=== PATIENT | female | born 1995 | race Caucasian/White ===

== ENCOUNTER 2016-10-18 01:24 | Emergency (ER) | payer OTHER ==
--- NOTE | 2016-10-18 04:38 | ED CLINICAL REPORT ---
Clinical Report - Physicians/Mid Levels [facility] [address] [place] [address] 10/18/2016 1:27 [id number] Time Seen: 03:11. Arrived- By private vehicle. Historian- patient. HISTORY OF PRESENT ILLNESS Chief Complaint: Injury to the right and left hand. The injury happened just prior to arrival. Occurred at home. The patient sustained a laceration (Patient states she was breaking a car window with a hammer, and was cut by glass.). Patient is experiencing mild pain. No other injury. REVIEW OF SYSTEMS The patient sustained a laceration. No swelling, tingling, numbness, weakness or foreign body. All systems otherwise negative, except as recorded above. PAST HISTORY Problems: no known problems. Additional Surgeries: no known surgeries. Medications: LORazepam Oral (Tablet 0.5 mg) 1 tablet, PRN. Allergies: No Known Drug Allergy. SOCIAL HISTORY Smoker- current status unknown. Alcohol use. History of drug use: marijuana. ADDITIONAL NOTES The nursing notes have been reviewed. PHYSICAL EXAM Vital Signs: 10/18/2016 01:43 BP: 114/75. HR: 86. RR: 18. O2 saturation: 100%. Temp: 98.4 F. Pain level now: 0/10. Have been reviewed. Appearance: Alert. No acute distress. Head: Head atraumatic. Eyes: Eyes normal inspection. ENT: Nose normal. Neck: Normal inspection. CVS: Pulses normal. Respiratory: No respiratory distress. Back: ROM normal. Skin: Skin warm and dry. Extremities: Dorsal right hand: (Multiple tiny, very superficiallacerations are noted over the surface of the patient's dorsal hand. Wounds are 1-2 mm in length and do not involve the subcutaneous tissue.). Dorsal left hand: subcutaneous 2.0 cm laceration of the central aspect of the dorsal hand. SEE LACERATION PROCEDURE NOTE #1. Neurovascular intact distally. No erythema, tenderness, swelling, abrasion or ecchymosis. No puncture wound, foreign body or deformity. No limitation of extension. Left index finger: mild tenderness and 0.5 cm laceration of the dorsal aspect and PIP joint- SEE LACERATION PROCEDURE NOTE #2. Neurovascular intact distally. No erythema, swelling, abrasion, ecchymosis or puncture wound. No foreign body or deformity. No limitation in movement. No subungual hematoma or amputation present. No wrist injury. Hand and wrist exam otherwise negative. Extremities otherwise negative. Neuro, Vascular and Tendons: Vascular status intact. Sensation intact. Motor intact. Tendon function intact. Neuro: No motor deficit. No sensory deficit. (Grossly oriented.). LABS, X-RAYS, AND EKG Pulse Oximetry: 10/18/2016 01:43 O2 saturation: 100%. (FIO2 - room air). Interpretation: normal. PROGRESS AND PROCEDURES Laceration Repair: Location: left hand. Length: 2 cm. Complexity: simple (local anesthesia used and sutured). Wound depth/shape- subcutaneous and linear. Wound is clean. Distal neuro/vascular/tendon status normal. Tendon examined. No tendon deficit. Local anesthesia provided using 2% lidocaine. Prepped with Betadine. Wound explored, cleansed, irrigated and examined to the base in bloodless field with normal saline. Closure of skin: interrupted 5-0 nylon (4 sutures). Post-procedure: she is stable and there are no complications. Bleeding is controlled. Tetanus immunization given. Laceration Repair #2: Location: left index finger. Length: 0.5cm. Complexity: simple (local anesthesia used and sutured). Wound depth/shape- subcutaneous and linear. Distal neuro/vascular/tendon status normal. Local anesthesia provided using 2% lidocaine. Prepped with Betadine. Wound explored, cleansed, irrigated and examined to the base in bloodless field with normal saline. Closure of skin: interrupted 5-0 nylon (1 suture). Post-procedure: she is stable and there are no complications. Bleeding is controlled and neuro-vascular status is intact distal to the wound. Patient counseled in person regarding the patient's stable condition, diagnosis and need for follow-up. Concerns were addressed. Old medical records reviewed. Disposition: Discharged. Condition: stable and improved. CLINICAL IMPRESSION Multiple superficial lacerations to the left hand.No foreign body present. INSTRUCTIONS Apply ice for 20 minutes three times a day as needed and until better. Don't apply ice directly to skin and don't use while asleep. Do not work today, tomorrow. Warnings: GENERAL WARNINGS: Return or contact your physician immediately if your condition worsens or changes unexpectedly, if not improving as expected, or if other problems arise. Your Current Medications: CONTINUE TAKING THE FOLLOWING MEDICATIONS: LORazepam Oral : Tablet 0.5 mg, 1 tablet PRN. Follow-up: Follow up with your doctor in seven days for suture removal. Understanding of the discharge instructions verbalized by patient. (Electronically signed by Milagros Garcia MD 10/18/2016 5:45)
--- NOTE | 2016-10-18 04:38 | ED NURSING NOTES ---
Clinical Report - Nurses [facility] [place] [address] 10/18/2016 1:27 [id number] TRI[facility] Triage time 01:34 Oct 18 2016. Acuity: LEVEL 4. Chief Complaint: INJURY TO RIGHT and LEFT HAND. 01:39 10/18/16. SEPSIS SCREEN: Sepsis Screen. Negative (no infection suspected/documented). TRENT COMA SCORE: [place] Coma Scale: 15- eyes open spontaneously (4); best verbal response- oriented x 4 (5); best motor response- obeys commands (6). --01:39 Yesi Mcwilliams R.N. 01:45 10/18/16. --01:45 Yesi Mcwilliams R.N. 01:43 10/18/16. BP: 114/75 (regular adult cuff) taken on the left arm, while sitting. HR: 86. RR: 18. O2 saturation: 100% on room air. Temp: 98.4 F (oral). Pain level now: 0/10. --01:45 Yesi Mcwilliams R.N. Weight: 83 kg stated. Height/Length: 68 inches Per Patient. BMI: 27.8. --01:34 Yesi Mcwilliams R.N. Medications LORazepam Oral (Tablet 0.5 mg) 1 tablet, PRN. --01:37 Yesi Mcwilliams R.N. Allergies No Known Drug Allergy. --01:37 Yesi Mcwilliams R.N. History Arrived by private vehicle. Historian: patient. Accompanied by friend and (and partner). This occurred just prior to arrival. She sustained a laceration from a broken glass. ( Patient was smashing in drivers side window with hammer, her hands were lacerated in the process. She was trying to destroy the car that is old and not being used anymore). PAST MEDICAL HX: Negative. Tetanus status: more than 5 years ago. Last normal menstrual period was 2 weeks ago- weeks ago. SOCIAL HX: Current every day heavy tobacco smoker- 1 pack per day. Occasional alcohol use; consumes beer. History of heavy drug use: marijuana. Recently used drugs yesterday. No infectious disease exposure. ABUSE ASSESSMENT: No report of abuse. SELF HARM ASSESSMENT: A self harm assessment was performed. The patient answered "no" to the question "Do you have thoughts of harming or killing yourself?" and "Have you recently had thoughts about harming or killing others?". Bedside precautions. --01:39 Yesi Mcwilliams R.N. PROBLEMS: no known problems. ADDITIONAL SURGERIES: no known surgeries. Interventions ID band on patient. To treatment room. --01:39 Yesi Mcwilliams R.N. PHYSICAL ASSESSMENT 01:43 10/18/16. Ambulatory to room. Patient gowned. GENERAL / NEURO / PSYCH: Oriented X 4. Alert. Appears in no acute distress. EXTREMITIES: Capillary refill is less than 2 seconds in the extremities. Extremity pulses are within normal limits. Extremities exhibit normal ROM. Neuro-vascular status intact to the extremity. Dorsal right hand: small abrasion, laceration with controlled bleeding and multiple puncture wounds. Dorsal left hand: 2.0 cm laceration with controlled bleeding and multiple puncture wounds. SKIN: Skin is warm and dry. Laceration. --01:43 Yesi Mcwilliams R.N. NURSING PROGRESS NOTES 01:45 10/18/16. The plan of care for this patient has been created. Extremity elevated. Patient gowned. Reassurance given. Two patient identifiers checked. Call light placed in reach. Bed placed in lowest position. Brakes of bed on. Patient ready for evaluation- chart flagged and ED physician notified. --01:45 Yesi Mcwilliams R.N. 01:48 10/18/16. ( Wounds cleaned with hibiclense and sterile water). --01:48 Yesi Mcwilliams R.N. 02:00 10/18/2016 TDAP IM 0.5 mL given. (Lot#: [id number], expiration date: 09/22/2018, Quality Assurance Clerk: sanofi pasteur). Given in the right deltoid. Allergies verified and confirmed 5 rights. Vaccine information statement provided to the patient. --02:00 Yesi Mcwilliams R.N. late entry - 02:15 10/18/16. ( Patient informed of long wait due to traumas, she and friends state their understanding). --03:41 Yesi Mcwilliams R.N. 02:58 10/18/16. GENERAL / NEURO / PSYCH: Alert. Oriented X 4. RESPIRATORY: No respiratory distress. CVS: Capillary refill less than 2 seconds. EXTREMITIES: Neuro-vascular status intact to the extremity. SKIN: Skin is warm and dry. ( Patient doing well, partner and friend at bedside). --02:59 Yesi Mcwilliams R.N. late entry - 04:10 10/18/16. ( physician in with patient to suture wound). --05:13 Yesi Mcwilliams R.N. DISPOSITION / DISCHARGE 04:47 10/18/16. Departure time: 04:47 Oct 18 2016. Condition at departure: improved. No learning barriers present. Discharge instructions provided and reviewed with the patient. Work note given. Patient verbalized understanding. Written instructions provided in Ukrainian. The patient was discharged by the physician. She was discharged home and accompanied by furnace combination analyst. She left the Emergency Department ambulatory and via private vehicle. Farm Contractor Buyer driving. --04:47 Yesi Mcwilliams R.N. 04:46 10/18/16. BP: 100/63 (regular adult cuff) taken on the left arm, while sitting. HR: 70. RR: 18. O2 saturation: 100% on room air. Temp: 98.2 F (oral). Pain level now: 0/10. --04:47 Yesi Mcwilliams R.N. Locked/Released at 10/18/2016 5:13 by Yesi Mcwilliams R.N.
--- NOTE | 2016-10-18 04:38 | ED ORDER SUMMARY ---
..... Patient: KENNA PAULSON OrderSheet [facility] VisitID: [id number] [address] [place] [address] 21y, F Registration Date/Time: 10/18/2016 ORDER SHEET Weight: 83.0 kg (stated) Allergies: No Known Drug Allergy GENERAL ORDERS: MEDICATION ORDERS: Tdap IM 0.5 mL (NOW, per protocol) (01:48 10/18/2016 HSoule per protocol) (Ack 1:49 JSamaras R.N.) (2:00 JSamaras R.N.) IV FLUIDS: ORDER SHEET NOTES: [Electronically signed by Yesi Mcwilliams R.N. (05:13 10/18/2016)] [Electronically signed by Milagros Garcia MD (05:45 10/18/2016)] [Electronically locked/signed by Yesi Mcwilliams R.N. (05:13 10/18/2016)]
--- NOTE | 2016-10-18 04:38 | ED ORDER SUMMARY ---
..... Patient: KENNA PAULSON OrderSheet [facility] VisitID: [id number] [address] [place] [address] 21y, F Registration Date/Time: 10/18/2016 ORDER SHEET Weight: 83.0 kg (stated) Allergies: No Known Drug Allergy GENERAL ORDERS: MEDICATION ORDERS: Tdap IM 0.5 mL (NOW, per protocol) (01:48 10/18/2016 HSoule per protocol) (Ack 1:49 JSamaras R.N.) (2:00 JSamaras R.N.) IV FLUIDS: ORDER SHEET NOTES: [Electronically signed by Yesi Mcwilliams R.N. (05:13 10/18/2016)] [Electronically signed by Milagros Garcia MD (05:45 10/18/2016)] [Electronically locked/signed by Yesi Mcwilliams R.N. (05:13 10/18/2016)]
--- NOTE | 2016-10-18 04:38 | ED NURSING NOTES ---
Clinical Report - Nurses [facility] [place] [address] 10/18/2016 1:27 [id number] TRI[facility] Triage time 01:34 Oct 18 2016. Acuity: LEVEL 4. Chief Complaint: INJURY TO RIGHT and LEFT HAND. 01:39 10/18/16. SEPSIS SCREEN: Sepsis Screen. Negative (no infection suspected/documented). TRENT COMA SCORE: [place] Coma Scale: 15- eyes open spontaneously (4); best verbal response- oriented x 4 (5); best motor response- obeys commands (6). --01:39 Yesi Mcwilliams R.N. 01:45 10/18/16. --01:45 Yesi Mcwilliams R.N. 01:43 10/18/16. BP: 114/75 (regular adult cuff) taken on the left arm, while sitting. HR: 86. RR: 18. O2 saturation: 100% on room air. Temp: 98.4 F (oral). Pain level now: 0/10. --01:45 Yesi Mcwilliams R.N. Weight: 83 kg stated. Height/Length: 68 inches Per Patient. BMI: 27.8. --01:34 Yesi Mcwilliams R.N. Medications LORazepam Oral (Tablet 0.5 mg) 1 tablet, PRN. --01:37 Yesi Mcwilliams R.N. Allergies No Known Drug Allergy. --01:37 Yesi Mcwilliams R.N. History Arrived by private vehicle. Historian: patient. Accompanied by friend and (and partner). This occurred just prior to arrival. She sustained a laceration from a broken glass. ( Patient was smashing in drivers side window with hammer, her hands were lacerated in the process. She was trying to destroy the car that is old and not being used anymore). PAST MEDICAL HX: Negative. Tetanus status: more than 5 years ago. Last normal menstrual period was 2 weeks ago- weeks ago. SOCIAL HX: Current every day heavy tobacco smoker- 1 pack per day. Occasional alcohol use; consumes beer. History of heavy drug use: marijuana. Recently used drugs yesterday. No infectious disease exposure. ABUSE ASSESSMENT: No report of abuse. SELF HARM ASSESSMENT: A self harm assessment was performed. The patient answered "no" to the question "Do you have thoughts of harming or killing yourself?" and "Have you recently had thoughts about harming or killing others?". Bedside precautions. --01:39 Yesi Mcwilliams R.N. PROBLEMS: no known problems. ADDITIONAL SURGERIES: no known surgeries. Interventions ID band on patient. To treatment room. --01:39 Yesi Mcwilliams R.N. PHYSICAL ASSESSMENT 01:43 10/18/16. Ambulatory to room. Patient gowned. GENERAL / NEURO / PSYCH: Oriented X 4. Alert. Appears in no acute distress. EXTREMITIES: Capillary refill is less than 2 seconds in the extremities. Extremity pulses are within normal limits. Extremities exhibit normal ROM. Neuro-vascular status intact to the extremity. Dorsal right hand: small abrasion, laceration with controlled bleeding and multiple puncture wounds. Dorsal left hand: 2.0 cm laceration with controlled bleeding and multiple puncture wounds. SKIN: Skin is warm and dry. Laceration. --01:43 Yesi Mcwilliams R.N. NURSING PROGRESS NOTES 01:45 10/18/16. The plan of care for this patient has been created. Extremity elevated. Patient gowned. Reassurance given. Two patient identifiers checked. Call light placed in reach. Bed placed in lowest position. Brakes of bed on. Patient ready for evaluation- chart flagged and ED physician notified. --01:45 Yesi Mcwilliams R.N. 01:48 10/18/16. ( Wounds cleaned with hibiclense and sterile water). --01:48 Yesi Mcwilliams R.N. 02:00 10/18/2016 TDAP IM 0.5 mL given. (Lot#: [id number], expiration date: 09/22/2018, Source Water Protection Specialist: sanofi pasteur). Given in the right deltoid. Allergies verified and confirmed 5 rights. Vaccine information statement provided to the patient. --02:00 Yesi Mcwilliams R.N. late entry - 02:15 10/18/16. ( Patient informed of long wait due to traumas, she and friends state their understanding). --03:41 Yesi Mcwilliams R.N. 02:58 10/18/16. GENERAL / NEURO / PSYCH: Alert. Oriented X 4. RESPIRATORY: No respiratory distress. CVS: Capillary refill less than 2 seconds. EXTREMITIES: Neuro-vascular status intact to the extremity. SKIN: Skin is warm and dry. ( Patient doing well, partner and friend at bedside). --02:59 Yesi Mcwilliams R.N. late entry - 04:10 10/18/16. ( physician in with patient to suture wound). --05:13 Yesi Mcwilliams R.N. DISPOSITION / DISCHARGE 04:47 10/18/16. Departure time: 04:47 Oct 18 2016. Condition at departure: improved. No learning barriers present. Discharge instructions provided and reviewed with the patient. Work note given. Patient verbalized understanding. Written instructions provided in Wolof. The patient was discharged by the physician. She was discharged home and accompanied by pump oiler. She left the Emergency Department ambulatory and via private vehicle. Senior Investment Analyst driving. --04:47 Yesi Mcwilliams R.N. 04:46 10/18/16. BP: 100/63 (regular adult cuff) taken on the left arm, while sitting. HR: 70. RR: 18. O2 saturation: 100% on room air. Temp: 98.2 F (oral). Pain level now: 0/10. --04:47 Yesi Mcwilliams R.N. Locked/Released at 10/18/2016 5:13 by Yesi Mcwilliams R.N.
--- NOTE | 2016-10-18 05:45 | ED MED RECONCILIATION SUMMARY ---
Patient: KENNA PAULSON Medication Reconciliation Report [facility] VisitID: [id number] [address] [place] [place] [address] 21y, F Registration Date/Time: 10/18/2016 Weight: 83.0 kg Height/Length: 68 in. BMI: 27.8 ALLERGIES: No Known Drug Allergy The patient's Home Medications are listed below: CONTINUE TAKING THE FOLLOWING MEDICATIONS: LORazepam Oral (0.5 mg) 1 tablet, PRN The source(s) of the original Home Medication information: Not obtained. The following Medications were given to the patient in the Emergency Department: TDAP [IM] IM 0.5 mL, administered: 10/18/2016 2:00:00 AM The following Medications were prescribed to the patient: None.
--- NOTE | 2016-10-18 05:45 | ED DISCHARGE INSTRUCTIONS ---
Patient: KENNA PAULSON General Instructions [facility] VisitID: [id number] [place] [address] 21y, F Registration Date/Time: 10/18/2016 Multiple superficial lacerations to the left hand.No foreign body present. INSTRUCTIONS Apply ice for 20 minutes three times a day as needed and until better. Don't apply ice directly to skin and don't use while asleep. Do not work today, tomorrow. Warnings: GENERAL WARNINGS: Return or contact your physician immediately if your condition worsens or changes unexpectedly, if not improving as expected, or if other problems arise. Your Current Medications: CONTINUE TAKING THE FOLLOWING MEDICATIONS: LORazepam Oral : Tablet 0.5 mg, 1 tablet PRN. Follow-up: Follow up with your doctor in seven days for suture removal. Understanding of the discharge instructions verbalized by patient. ADDITIONAL INFORMATION Laceration, Extremity (Sutures, [place], Or Tape) A laceration is a cut through the skin. This will usually require stitches (sutures) or ana if it is deep. Minor cuts may be treated with surgical tape closures. Home care The following guidelines will help you care for your laceration at home: Keep the wound clean and dry. If a bandage was applied and it becomes wet or dirty, replace it. Otherwise, leave it in place for the first 24 hours, then change it once a day or as directed. If stitches or ana were used, clean the wound daily: After removing the bandage, wash the area with soap and water. Use a wet cotton swab to loosen and remove any blood or crust that forms. After cleaning, keep the wound clean and dry. Talk with your doctor before applying any antibiotic ointment to the wound. Reapply the bandage. You may remove the bandage to shower as usual after the first 24 hours, but do not soak the area in water (no swimming) until the stitches or ana are removed. If surgical tape closures were used, keep the area clean and dry. If it becomes wet, blot it dry with a towel. The doctor may prescribe an antibiotic cream or ointment to prevent infection. Do not stop taking this medication until you have finished the prescribed course or the doctor tells you to stop. The doctor may also prescribe medications for pain. Follow the doctors instructions for taking these medications. If you have chronic liver or kidney disease or ever had a stomach ulcer or GI bleeding, talk with your doctor before using these medicines. Follow-up care Follow up with your health care provider. Most skin wounds heal within ten days. However, an infection may sometimes occur despite proper treatment. Therefore, check the wound daily for the signs of infection listed below. Stitches and ana should be removed within 714 days. If surgical tape closures were used, you may remove them after 10 days, if they have not fallen off by then. Notify your doctor if you notice persistent numbness or weakness in the injured extremity. (Note:A radiologist will review any X-rays that were taken. We will notify you of any new findings that may affect your care.) When to seek medical care Get prompt medical attention if any of these occur: Increasing pain in the wound Redness, swelling, or pus coming from the wound Fever of 100.4F (38C) or higher, or as directed by your health care provider If stitches or ana come apart or fall out before your next appointment If the surgical tape closures fall off within seven days, or the wound edges re-open Bleeding not controlled by direct pressure You have been given the following additional information: Laceration, Extrem (Suture, Staple, Or Tape) Do not work today, tomorrow. (Electronically signed by Milagros Garcia MD 10/18/2016 5:45)
--- NOTE | 2016-10-18 05:45 | ED MAR SUMMARY ---
..... Medication Administration Record [facility] [address] [place] [address] Patient: EKNNA PAULSON Visit ID: [id number] 21y, F Weight: 83.0 kg Height/Length: 68 in BMI: 27.8 ALLERGIES: No Known Drug Allergy Given 02:00 10/18/2016 Yesi Mcwilliams R.N. Medication Administered: TDAP [IM], Dose: 0.5 mL IM. Medication Ordered: Tdap IM 0.5 mL (NOW, per protocol).
--- NOTE | 2016-10-18 05:45 | ED MED RECONCILIATION SUMMARY ---
Patient: KENNA PAULSON Medication Reconciliation Report [facility] VisitID: [id number] [address] [place] [place] [address] 21y, F Registration Date/Time: 10/18/2016 Weight: 83.0 kg Height/Length: 68 in. BMI: 27.8 ALLERGIES: No Known Drug Allergy The patient's Home Medications are listed below: CONTINUE TAKING THE FOLLOWING MEDICATIONS: LORazepam Oral (0.5 mg) 1 tablet, PRN The source(s) of the original Home Medication information: Not obtained. The following Medications were given to the patient in the Emergency Department: TDAP [IM] IM 0.5 mL, administered: 10/18/2016 2:00:00 AM The following Medications were prescribed to the patient: None.
--- NOTE | 2016-10-18 05:45 | ED MAR SUMMARY ---
..... Medication Administration Record [facility] [address] [place] [address] Patient: KENNA PAULSON Visit ID: [id number] 21y, F Weight: 83.0 kg Height/Length: 68 in BMI: 27.8 ALLERGIES: No Known Drug Allergy Given 02:00 10/18/2016 Yesi Mcwilliams R.N. Medication Administered: TDAP [IM], Dose: 0.5 mL IM. Medication Ordered: Tdap IM 0.5 mL (NOW, per protocol).
== END 2016-10-18 04:47 | disposition home or self-care (01) ==
LOC: ED SRH 01:24
DX: S69.92XA Unspecified injury of left wrist, hand and finger(s), initial encounter (principal); S61.412A Laceration without foreign body of left hand, initial encounter; W25.XXXA Contact with sharp glass, initial encounter; Y93.89 Activity, other specified; Y92.009 Unspecified place in unspecified non-institutional (private) residence as the place of occurrence of the external cause; Y99.9 Unspecified external cause status